=== PATIENT | female | born 1960 | race Two or more races ===

== ENCOUNTER 2019-12-11 08:45 | Inpatient (IN) | payer OTHER ==
[~2019-12-11] VITALS: Ht 162.6 cm; Wt 75.7 kg
[2019-12-11] MEDS ORDERED: SYNTHROID50 MCG PO (11:39)
[2019-12-11] MEDS ORDERED: COREG CR20 MG PO (11:40)
[2019-12-11] MEDS ORDERED: PRAVASTATIN SOD40 MG PO (11:40)
[2019-12-11] MEDS ORDERED: BACTRIM DS TAB1 EACH PO (11:40)
[2019-12-11] MEDS ORDERED: DEPAKOTE ER500 MG PO (11:41)
[2019-12-19] MEDS ORDERED: CARVEDILOL25 M1 PO (07:59)
[2019-12-19] MEDS ORDERED: HYDROXYZINE PAM25 MG (07:59)
[2019-12-19] MEDS ORDERED: REFRESH RELIEVA10 ML (08:02)
== END 2019-12-21 12:01 | DRG 743 ==
LOC: O/R 12-18 07:54 → OB/GYN 12-18 08:45
PROVIDERS: ADMIT Obstetrics & Gynecology; ATTEND Obstetrics & Gynecology
PROC: 0UT70ZZ Resection of Bilateral Fallopian Tubes, Open Approach (ICD-10-PCS; 2019-12-18)
PROC: 0UT90ZZ Resection of Uterus, Open Approach (ICD-10-PCS; principal; 2019-12-18 09:45)
DX: D25.1 Intramural leiomyoma of uterus (principal); D25.0 Submucous leiomyoma of uterus; N72 Inflammatory disease of cervix uteri